=== PATIENT | female | born 1970 | race Caucasian/White ===

== ENCOUNTER 2024-11-16 07:38 | Observation (INO) ==
[2024-11-16] MEDS: ZOFRAN INJ 4 MG VIAL IVP ONE ×2 (07:52→09:38)
--- NOTE | 2024-11-16 07:52 | ED.ABDFE ---
HPI Time Seen Time Seen by Provider: 11/16/24 07:43 HPI Comment HPI Comment: History as below. Complaint Doctors Chief Complaint Comments: Patient is 53yr old female in ER with right upper quadrant abdominal pain associated with nausea that started 03:00am today. patient is post, karina cash . COVID-19 Coronavirus risk:travel/contact w/high risk person: No Has patient experienced Coronavirus symptoms: No Reviewed Nurses Notes Review: Yes PMH PMH Past Surgical History: Yes ROS Review of Systems Constitutional: No Symptoms Reported; negative Fever Eyes: No Symptoms Reported ENTM: No Symptoms Reported Respiratoy: No Symptoms Reported; negative Moist Cough or Short of Breath Cardiovascular: No Symptoms Reported; negative Chest Pain Gastrointestinal/Abdominal: Abdominal Pain (RUQ ABD PAIN.) and Nausea; negative Vomiting Genitourinary: No Symptoms Reported; negative Dysuria Neurological: No Symptoms Reported; negative Headache or Dizziness Musculoskeletal: No Symptoms Reported; negative Muscle Pain Integumentary: No Symptoms Reported; negative Rash Hematologic/Lymphatic: No Symptoms Reported Endocrine: No Symptoms Reported and Increased Thirst; negative Increased Urine Psychiatric: No Symptoms Reported All Other Systems: Reviewed and Negative Unable to Obtain Due To: Altered mental status PE Vital Signs Vitals: Vital Signs Temperature 98.0 F Pulse Rate 89 Respiratory Rate 18 Blood Pressure 123/76 O2 Sat by Pulse Oximetry 96 General Limitations: No Limitations General Appearance: Alert Head Head Exam: Normal Inspection Eyes Eye exam: Normal Appearance ENT ENT Exam: Normal Exam, Normal Oropharynx, Normal External Ear Exam and TM's N ormal Bilaterally Neck Neck Exam: Normal Inspection and Trachea Midline; negative Tenderness Chest Chest Inspection: Normal Inspection and Symmetric Chest Wall Rise; negative Tenderness Respiratory Respiratory Exam: Normal Lung Sounds Bilat; negative Accessory Muscle Use, Chest Wall Tenderness or Respiratory Distress Respiratory Exam: Bilateral: Clear to Auscultation Cardiovascular Cardiovascular Exam: Regular Rate Abdominal Exam Abdominal Exam: Normal Inspection, Normal Bowel Sounds, Soft and Tenderness Abdominal Tenderness: RUQ and Moderate Rectal Rectal Exam: Deferred Back Back Exam: Normal Inspection; negative (R) CVA Tenderness or (L) CVA Tenderness Extremeties Extremities Exam: Normal Inspection and Normal Capillary Refill External Exam: Female: Normal External Exam and Deferred : Speculum Exam (Female): Deferred : Bimanual Exam (female): Deferred Neurologic Neurological Exam: Alert and Oriented X3; negative Motor Sensory Deficit Psychiatric Psychiatric Exam: Normal Affect and Normal Mood Skin Skin Exam: Warm; negative Rash MDM Differential Diagnosis Differential Diagnosis- Considerations may include:: Bowel Obstruction, Cholcystitis, Constipation, Pancreatitis and Urinary tract infection COURSE Treatment Treatment: See orders done while in ER. Patient is given NS IL 125cc/HR, Demerol 25mg IV and Zofran 4mg IV. ROR Labs Reviewed 11/16/24 07:49 11/16/24 07:49 Laboratory: WBC 15.6 X10^3/uL (3.6-10.0) H 11/16/24 07:49 RBC 4.96 X10^6/uL (3.5-5.4) 11/16/24 07:49 Hgb 15.6 g/dL (12.0-16.0) 11/16/24 07:49 Hct 46.2 % (36.0-47.0) 11/16/24 07:49 MCV 93.1 fL (80.0-100.0) 04 07:49 MCH 31.4 pg (27.0-34.0) 11/16/24 07:49 MCHC 33.7 g/dL (33.0-35.0) 11/16/24 07:49 RDW 13.8 % (11.6-16.5) 11/16/24 07:49 Plt Count 222 X10^3/uL (150.0-450.0) 11/16/24 07:49 MPV 8.0 fL (7.4-11.0) 11/16/24 07:49 Neut % (Auto) 89.6 % (42.0-75.0) H 11/16/24 07:49 Lymph % (Auto) 4.2 % (21.0-51.0) L 11/16/24 07:49 [place] % (Auto) 5.9 % (0.0-13.0) 11/16/24 07:49 Eos % (Auto) 0.1 % (0.9-2.9) L 11/16/24 07:49 Baso % (Auto) 0.2 % (0.2-1.0) 11/16/24 07:49 Neut # (Auto) 13.9 x10^3/uL (2.2-4.8) H 11/16/24 07:49 Lymph # (Auto) 0.6 X10^3/uL (1.3-2.9) L 11/16/24 07:49 [place] # (Auto) 0.9 x10^3/uL (0.3-0.8) H 11/16/24 07:49 Eos # (Auto) 0.0 x10^3/uL (0.0-0.2) 11/16/24 07:49 Baso # (Auto) 0.0 X10^3/uL (0.0-0.1) 11/16/24 07:49 Absolute Nucleated RBC 0.0 /100WBC 11/16/24 07:49 Sodium 138 mmol/L (136-145) 11/16/24 07:49 Corrected Sodium 140 mmol/L (136-145) 11/16/24 07:49 Potassium 4.1 mmol/L (3.5-5.1) 11/16/24 07:49 Chloride 101 mmol/L (98-107) 11/16/24 07:49 Carbon Dioxide 26.4 mmol/L (21-32) 11/16/24 07:49 BUN 11 mg/dL (7-18) 11/16/24 07:49 Creatinine 0.86 mg/dL (0.55-1.02) 11/16/24 07:49 Est GFR (MDRD) Af Amer > 60 (>60) 11/16/24 07:49 Est GFR (MDRD) Non-Af > 60 (>60) 11/16/24 07:49 Glucose 164 mg/dL (65-99) H 11/16/24 07:49 Lactic Acid 1.4 mmol/L (0.4-2.0) 11/16/24 09:25 Calcium 9.5 mg/dL (8.5-10.1) 11/16/24 07:49 Corrected Calcium TNP 11/16/24 07:49 Magnesium 1.7 mg/dL (2.0-2.9) L 11/16/24 07:49 Total Bilirubin 0.70 mg/dL (0.2-1.0) 11/16/24 07:49 AST 27 Units/L (15-37) 11/16/24 07:49 ALT 40 Units/L (12-78) 11/16/24 07:49 Alkaline Phosphatase 83 Units/L (46-116) 11/16/24 07:49 Total Protein 7.7 g/dL (6.4-8.2) 11/16/24 07:49 Albumin 3.7 g/dL (3.4-5.0) 11/16/24 07:49 Globulin 4.0 g/dL (2.5-4.5) 11/16/24 07:49 Albumin/Globulin Ratio 0.9 Ratio (1.1-2.1) L 11/16/24 07:49 Amylase 14 Units/L (25-115) L 11/16/24 07:49 Lipase 26 Units/L (16-77) 11/16/24 07:49 Opioid Opioid Risk Tool Total: 0 Total Score Risk Category: Low Risk Copyright: William CHARLES predicting aberrant behaviors Discharge Plan Diagnosis Discharge Problem: Acute abdominal pain in right lower quadrant, Leucocytosis, Hx laparoscopic cholecystectomy Discharge Plan Patient Disposition: 09 ADMITTED INPATIENT Condition: Stable
[2024-11-16 08:01] LABS: BASOPHILS % (AUTO) 0.2 % (0.2-1.0); EOSINOPHILS % (AUTO) 0.1 % (0.9-2.9); HEMATOCRIT 46.2 % (36.0-47.0); HEMOGLOBIN 15.6 g/dL (12.0-16.0); LYMPHOCYTES # (AUTO) 0.6 X10^3/uL (1.3-2.9); LYMPHOCYTES % (AUTO) 4.2 % (21.0-51.0); MEAN CORPUSCULAR HEMOGLOBIN 31.4 pg (27.0-34.0); MEAN CORPUSCULAR HGB CONC 33.7 g/dL (33.0-35.0); MEAN CORPUSCULAR VOLUME 93.1 fL (80.0-100.0); MONOCYTES # (AUTO) 0.9 x10^3/uL (0.3-0.8); MONOCYTES % (AUTO) 5.9 % (0.0-13.0); NEUTROPHILS # (AUTO) 13.9 x10^3/uL (2.2-4.8); NEUTROPHILS % (AUTO) 89.6 % (42.0-75.0); PLATELET COUNT 222 X10^3/uL (150.0-450.0); RED BLOOD COUNT 4.96 X10^6/uL (3.5-5.4); RED CELL DISTRIBUTION WIDTH 13.8 % (11.6-16.5); WHITE BLOOD COUNT 15.6 X10^3/uL (3.6-10.0)
[2024-11-16] MEDS: DEMEROL INJ IVP ONE (08:04)
[2024-11-16 08:13] LABS: ALANINE AMINOTRANSFERASE 40 Units/L (12-78); ALBUMIN 3.7 g/dL (3.4-5.0); ALKALINE PHOSPHATASE 83 Units/L (46-116); AMYLASE 14 Units/L (25-115); ASPARTATE AMINO TRANSFERASE 27 Units/L (15-37); BLOOD UREA NITROGEN 11 mg/dL (7-18); CALCIUM 9.5 mg/dL (8.5-10.1); CARBON DIOXIDE 26.4 mmol/L (21-32); CHLORIDE 101 mmol/L (98-107); COR NA(FOR HYPERGLY) 140 mmol/L (136-145); CREATININE 0.86 mg/dL (0.55-1.02); GLUCOSE 164 mg/dL (65-99); LIPASE 26 Units/L (16-77); SODIUM 138 mmol/L (136-145); TOTAL PROTEIN 7.7 g/dL (6.4-8.2); eGFR NON BLACK RACES > 60 (>60)
[2024-11-16 08:14] LABS: POTASSIUM 4.1 mmol/L (3.5-5.1)
[2024-11-16] MEDS: NS 1,000 ML IV 1,000 ML IV SCH (08:20)
--- NOTE | 2024-11-16 08:27 | CT ---
EXAM:CT ABDOMEN AND PELVIS WITHOUT CONTRASTHISTORY:ABDOMINAL PAIN ;COMPARISON:None.TECHNIQUE:Axial CT images were obtained through the abdomen and pelvis without contrast. Coronal reformatted images were included.All CT scans at this facility use dose modulation, iterative reconstruction, and/or weight based dosing when appropriate to reduce radiation dose to as low as reasonably achievable.FINDINGS:Please note that without the use of intravenous contrast, evaluation of organ parenchyma is limited.LOWER THORAX: Bilateral breast implants noted. Small hiatal hernia.ABDOMEN:LIVER: NormalGALLBLADDER: Postop changes of cholecystectomy are noted. Within the gallbladder fossa, there is a collection of fluid and gas, suspicious for abscess measuring 3.4 x 3.3 cm.SPLEEN: NormalPANCREAS: NormalKIDNEYS: NormalADRENAL GLANDS: NormalGI TRACT: Colonic diverticulosis without evidence of diverticulitis.LYMPH NODES: No enlarged nodesVESSELS: Mild atherosclerosis.PERITONEUM / RETROPERITONEUM: Healing anterior abdominal wall laparoscopic port sites are noted with skin julian and underlying expected fat stranding, consistent with likely recent cholecystectomy.PELVIS:BLADDER: NormalGENITALS: NormalBONES: NormalIMPRESSION:Postop changes of recent cholecystectomy are noted. In the gallbladder fossa there is a collection of fluid and gas measuring 3.4 x 3.3 cm in the axial plane, suspicious for abscess. Correlation recommended.THIS IS AN ELECTRONICALLY VERIFIED FINAL REPORT11/16/2024 8:23 AM - Electronically signed by Hardik Galeas MD
--- NOTE | 2024-11-16 09:09 | ED.ABDFE ---
HPI Time Seen Time Seen by Provider: 11/16/24 07:43 PCP Primary Care Physician: lily chavez HPI Comment HPI Comment: According to pt she began experiencing pain in the right upper quadrant pain, sudden in onset woke up from sleep. Pain moderate to severe intensity. Worse with movement and cough .Came to ER for evaluation .She had laproscopic cholecystectomy on 11/12/2024 Complaint Doctors Chief Complaint Comments: right upper quadrant abdominal pain Chief Complaint:: Patient states on 11/12/24 she had her gallbladder out by Dr bullock she has not had any probelms up until this morning around 0300 she started having right side abd pain patient states it feels like someone got a air hose in her and blowing her up. Nothing makes the pain better or worse and she states it doesnt radiate anywhere. Patient also c/o of nausea no vomiting or diarrhea. Self Treatment fo Chief Complaint: zofran COVID-19 Coronavirus risk:travel/contact w/high risk person: No Has patient experienced Coronavirus symptoms: No Reviewed Nurses Notes Review: Yes Source History Provided: Patient Mode of arrival Mode of Arrival: Ambulatory Timing Onset of Chief Complaint: 11/16/24 Came on: Suddenly Duration Since Onset: Since Onset Duration: Hours Location Location: RUQ Severity Severity: Moderate and Severe Quality Quality: Aching Context History of: Abdominal surgery Modifying factors Worsening Factors: Position and Movement Improving Factors: Nothing Associated signs and symptoms Associated Signs and Symptoms: Nausea PMH PMH Past Medical History: Yes Past Medical History: Hypertension Past Surgical History: Yes Surgical History: and Cholecystectomy Family History History of Family Medical Conditions: Yes Family Medical History: Hypertension Social History Does patient currently use any type of tobacco product: Yes Have you used tobacco products in the last 12 months: Yes Type of Tobacco Use: Vape Does any household member use tobacco: Yes Alcohol Use: None Do you use any recreational Drugs:: No Lives With: Family Lives Where: Home Travel Risk Coronavirus risk:travel/contact w/high risk person: No Has patient experienced Coronavirus symptoms: No Infectious screening In the last 2 months have you had wt loss of >10#?: NO Have you had fever, night sweats or hemotysis?: No Have you traveled outside the country in the last 6 months?: No Isolation: Standard ROS Review of Systems Constitutional: No Symptoms Reported Eyes: No Symptoms Reported ENTM: No Symptoms Reported Respiratoy: No Symptoms Reported Cardiovascular: No Symptoms Reported Gastrointestinal/Abdominal: See HPI Genitourinary: No Symptoms Reported Neurological: No Symptoms Reported Integumentary: No Symptoms Reported PE Vital Signs Vitals: Vital Signs Temperature 98.0 F Pulse Rate 89 Respiratory Rate 18 Respiratory Rate 18 Blood Pressure 123/76 O2 Sat by Pulse Oximetry 96 General Limitations: No Limitations General Appearance: Alert and In Distress Head Head Exam: Normal Inspection, Atraumatic and Normocephalic Eyes Eye exam: Normal Appearance, PERRL and EOMI ENT ENT Exam: Normal Oropharynx and Mucous Membranes Moist Neck Neck Exam: Normal Inspection and Full ROM Chest Chest Inspection: Normal Inspection and Symmetric Chest Wall Rise Respiratory Respiratory Exam: Normal Lung Sounds Bilat Respiratory Exam: Bilateral: Clear to Auscultation Cardiovascular Cardiovascular Exam: +S1 and +S2 Abdominal Exam Abdominal Exam: Normal Inspection, Normal Bowel Sounds, Soft, Tenderness, Guarding and Incision Abdominal Tenderness: RUQ Back Back Exam: Normal Inspection Extremeties Extremities Exam: Normal Inspection Neurologic Neurological Exam: Alert MDM Additional Information Obtained From Additional information provided by: Old Records Differential Diagnosis Other differential diagnosis: acute abdominal pain right upper quadrant ,air bubble,nausea COURSE Treatment Treatment: labs ,ct abdomen and pelvis ,zofran ROR Labs Reviewed Laboratory Results Reviewed?: Yes 11/16/24 07:49 11/16/24 07:49 Laboratory: WBC 15.6 X10^3/uL (3.6-10.0) H 11/16/24 07:49 RBC 4.96 X10^6/uL (3.5-5.4) 11/16/24 07:49 Hgb 15.6 g/dL (12.0-16.0) 11/16/24 07:49 Hct 46.2 % (36.0-47.0) 11/16/24 07:49 MCV 93.1 fL (80.0-100.0) 11/16/24 07:49 MCH 31.4 pg (27.0-34.0) 11/16/24 07:49 MCHC 33.7 g/dL (33.0-35.0) 11/16/24 07:49 RDW 13.8 % (11.6-16.5) 11/16/24 07:49 Plt Count 222 X10^3/uL (150.0-450.0) 11/16/24 07:49 MPV 8.0 fL (7.4-11.0) 11/16/24 07:49 Neut % (Auto) 89.6 % (42.0-75.0) H 11/16/24 07:49 Lymph % (Auto) 4.2 % (21.0-51.0) L 11/16/24 07:49 [place] % (Auto) 5.9 % (0.0-13.0) 11/16/24 07:49 Eos % (Auto) 0.1 % (0.9-2.9) L 11/16/24 07:49 Baso % (Auto) 0.2 % (0.2-1.0) 11/16/24 07:49 Neut # (Auto) 13.9 x10^3/uL (2.2-4.8) H 11/16/24 07:49 Lymph # (Auto) 0.6 X10^3/uL (1.3-2.9) L 11/16/24 07:49 [place] # (Auto) 0.9 x10^3/uL (0.3-0.8) H 11/16/24 07:49 Eos # (Auto) 0.0 x10^3/uL (0.0-0.2) 11/16/24 07:49 Baso # (Auto) 0.0 X10^3/uL (0.0-0.1) 11/16/24 07:49 Absolute Nucleated RBC 0.0 /100WBC 11/16/24 07:49 Sodium 138 mmol/L (136-145) 11/16/24 07:49 Corrected Sodium 140 mmol/L (136-145) 11/16/24 07:49 Potassium 4.1 mmol/L (3.5-5.1) 11/16/24 07:49 Chloride 101 mmol/L (98-107) 11/16/24 07:49 Carbon Dioxide 26.4 mmol/L (21-32) 11/16/24 07:49 BUN 11 mg/dL (7-18) 11/16/24 07:49 Creatinine 0.86 mg/dL (0.55-1.02) 11/16/24 07:49 Est GFR (MDRD) Af Amer > 60 (>60) 11/16/24 07:49 Est GFR (MDRD) Non-Af > 60 (>60) 11/16/24 07:49 Glucose 164 mg/dL (65-99) H 11/16/24 07:49 Calcium 9.5 mg/dL (8.5-10.1) 11/16/24 07:49 Corrected Calcium TNP 11/16/24 07:49 Total Bilirubin 0.70 mg/dL (0.2-1.0) 11/16/24 07:49 AST 27 Units/L (15-37) 11/16/24 07:49 ALT 40 Units/L (12-78) 11/16/24 07:49 Alkaline Phosphatase 83 Units/L (46-116) 11/16/24 07:49 Total Protein 7.7 g/dL (6.4-8.2) 11/16/24 07:49 Albumin 3.7 g/dL (3.4-5.0) 11/16/24 07:49 Globulin 4.0 g/dL (2.5-4.5) 11/16/24 07:49 Albumin/Globulin Ratio 0.9 Ratio (1.1-2.1) L 11/16/24 07:49 Amylase 14 Units/L (25-115) L 11/16/24 07:49 Lipase 26 Units/L (16-77) 11/16/24 07:49 Opioid Opioid Risk Tool Age (Nabeel box if 16-45): No History of Preadolescent Sexual Abuse: No Total: 0 Total Score Risk Category: Low Risk Copyright: William CHARLES predicting aberrant behaviors Discharge Plan Diagnosis Discharge Problem: Acute abdominal pain in right lower quadrant, Leucocytosis, Hx laparoscopic cholecystectomy Discharge Plan Patient Disposition: 01 HOME, SELF-CARE Condition: Stable Prescriptions: No Action pantoprazole 40 mg tablet,delayed release (DR/EC) 40 mg PO BID meloxicam 15 mg tablet 15 mg PO QDAY thyroid (pork) [[place] Thyroid] 30 mg tablet 30 mg PO QDAY progesterone micronized 200 mg capsule 200 mg PO QDAY estradiol 2 mg tablet 2 mg PO DAILY cyanocobalamin (vitamin B-12) 1,000 mcg/mL solution 1,000 mcg IM Q2W eszopiclone 3 mg tablet 3 mg PO QPM Health Concerns: Post Hospitalization: new medications and changes needed to prevent readmission or further decline. Pt educated and given instructions on all concerns. Plan of Treatment: Continue with present treatment and follow up plan. Pt is to keep follow up appointment as instructed and take medications as ordered. Orders to Discharge Patient Discharge Orders: Discharge (Routine); Ordered 11/16/24 Ordered By: Kole Delacruz Transfer (Routine); Ordered 11/16/24 Ordered By: Kole Delacruz Follow ups/Referrals Follow ups/Referrals: LILY CHAVEZ [Primary Care Provider] - 3 days Instructions Stand Alone Forms: Find Help Web Site, Post Hospital Follow Up Care ADDITIONAL NOTES Additional Notes Additional Notes: spoek with Dr Mes[place] surgery .CT abdomen discussed .? air bubble v collection of fluid and gas in the gallbladder fossa ,elevated wbc .agreed to have patient admitted for IV antibiotics ,pain medication and IV fluids
[2024-11-16] MEDS: DILAUDID INJ IVP ONE (09:38)
[2024-11-16] MEDS: NS 1,000 ML IV 1,000 ML ONE (11:20)
[2024-11-16 12:25] VITALS: BMI 31.1
[2024-11-16] MEDS ORDERED: NS 250 ML IV 25 ML IV PRN (14:19)
[2024-11-16] MEDS: PATIENT'S HOME MEDICATION (Thyroid (Pork) [Armour Thyroid] 30 mg tablet) PO SCH (14:44)
[2024-11-16] MEDS: PROGESTERONE MICRONIZED 200 MG PO SCH (14:44)
[2024-11-16] MEDS ORDERED: AMBIEN PO PRN (14:46)
[2024-11-16] MEDS: DILAUDID INJ IVP PRN (14:55)
[2024-11-16] MEDS: ZOFRAN INJ 4 MG VIAL IVP PRN ×2 (14:55→19:08)
[2024-11-16] MEDS: ZOSYN VIAL 3.375 GRAMS 3.375 G in NS 100 ML IV 100 ML IV SCH (14:55)
[2024-11-16] MEDS: AMBIEN PO SCH (22:00)
[2024-11-17 06:00] LABS: BASOPHILS # (AUTO) 0.1 X10^3/uL (0.0-0.1); BASOPHILS % (AUTO) 0.2 % (0.2-1.0); HEMATOCRIT 43.2 % (36.0-47.0); HEMOGLOBIN 14.3 g/dL (12.0-16.0); LYMPHOCYTES # (AUTO) 0.4 X10^3/uL (1.3-2.9); LYMPHOCYTES % (AUTO) 1.7 % (21.0-51.0); MEAN CORPUSCULAR HEMOGLOBIN 31.5 pg (27.0-34.0); MEAN CORPUSCULAR HGB CONC 33.2 g/dL (33.0-35.0); MEAN CORPUSCULAR VOLUME 94.9 fL (80.0-100.0); MEAN PLATELET VOLUME 8.2 fL (7.4-11.0); MONOCYTES # (AUTO) 1.4 x10^3/uL (0.3-0.8); MONOCYTES % (AUTO) 5.9 % (0.0-13.0); NEUTROPHILS # (AUTO) 21.2 x10^3/uL (2.2-4.8); NEUTROPHILS % (AUTO) 92.2 % (42.0-75.0); PLATELET COUNT 210 X10^3/uL (150.0-450.0); RED BLOOD COUNT 4.55 X10^6/uL (3.5-5.4); RED CELL DISTRIBUTION WIDTH 13.6 % (11.6-16.5)
[2024-11-17 06:17] LABS: ALANINE AMINOTRANSFERASE 50 Units/L (12-78); ALBUMIN 3.3 g/dL (3.4-5.0); ALKALINE PHOSPHATASE 85 Units/L (46-116); ASPARTATE AMINO TRANSFERASE 27 Units/L (15-37); BLOOD UREA NITROGEN 15 mg/dL (7-18); CALCIUM 9.1 mg/dL (8.5-10.1); CARBON DIOXIDE 27.7 mmol/L (21-32); CHLORIDE 102 mmol/L (98-107); COR CA(FOR HYPOALB) 9.7 mg/dL (8.5-10.1); COR NA(FOR HYPERGLY) 140 mmol/L (136-145); CREATININE 0.86 mg/dL (0.55-1.02); GLUCOSE 146 mg/dL (65-99); POTASSIUM 3.9 mmol/L (3.5-5.1); SODIUM 139 mmol/L (136-145); TOTAL PROTEIN 7.9 g/dL (6.4-8.2); eGFR NON BLACK RACES > 60 (>60)
[2024-11-17 06:26] LABS: PLATELET MORPHOLOGY COMMENT NORMAL (NORMAL)
[2024-11-17] MEDS: ESTRACE PO SCH (08:04)
[2024-11-17] MEDS ORDERED: ESTRADIOL 2 MG PO SCH (09:00)
--- NOTE | 2024-11-17 09:14 | DR.PROGNOT ---
HOSPITAL PROGRESS NOTE Progress Note for Day of: Progress Note Date: 11/17/24 Chief Complaint Chief Complaint: still c/o RUQ and RT side pain ,[place] [address] with [place] shift . normal LFT , normal BUN/Creat .. Pt is afebrile. RUQ tenderness , BS hypoactive .. Past Medical Family Social History Allergies: Allergies alcohol Allergy (Verified 11/16/24 07:51) ethyl alcohol Allergy (Verified 11/16/24 07:51) Sulfa (Sulfonamide Antibiotics) [SULFA] Allergy (Verified 11/16/24 07:51) Vital Signs Vital Signs: Vital Signs Temperature 97.7 F Temperature 97.9 F Pulse Rate [Right Brachial] 81 Pulse Rate [Right Brachial] 86 Respiratory Rate 20 Respiratory Rate 20 Respiratory Rate 16 Respiratory Rate 16 Respiratory Rate 17 Blood Pressure [Right Arm] 131/76 Blood Pressure [Right Arm] 114/75 O2 Sat by Pulse Oximetry 95 O2 Sat by Pulse Oximetry 97 Physical Exam Oriented: Normal Eyes: Normal Ear: Normal Nose: Normal Throat: Normal Respiratory: Normal GI:Auscultation: Decreased GI: Tenderness: RUQ Speech Pattern: Clear Laboratory and Diagnostics 11/17/24 05:30 11/17/24 05:30 Labs: Laboratory WBC 23.0 X10^3/uL (3.6-10.0) H 11/17/24 05:30 RBC 4.55 X10^6/uL (3.5-5.4) 11/17/24 05:30 Hgb 14.3 g/dL (12.0-16.0) 11/17/24 05:30 Hct 43.2 % (36.0-47.0) 11/17/24 05:30 MCV 94.9 fL (80.0-100.0) 11/17/24 05:30 MCH 31.5 pg (27.0-34.0) 11/17/24 05:30 MCHC 33.2 g/dL (33.0-35.0) 11/17/24 05:30 RDW 13.6 % (11.6-16.5) 11/17/24 05:30 Plt Count 210 X10^3/uL (150.0-450.0) 11/17/24 05:30 Plt Count Comment Adequate (ADEQUATE) 11/17/24 05:30 MPV 8.2 fL (7.4-11.0) 11/17/24 05:30 Neut % (Auto) 92.2 % (42.0-75.0) H 11/17/24 05:30 Lymph % (Auto) 1.7 % (21.0-51.0) L 11/17/24 05:30 [place] % (Auto) 5.9 % (0.0-13.0) 11/17/24 05:30 Eos % (Auto) 0.0 % (0.9-2.9) L 11/17/24 05:30 Baso % (Auto) 0.2 % (0.2-1.0) 11/17/24 05:30 Neut # (Auto) 21.2 x10^3/uL (2.2-4.8) H 11/17/24 05:30 Lymph # (Auto) 0.4 X10^3/uL (1.3-2.9) L 11/17/24 05:30 [place] # (Auto) 1.4 x10^3/uL (0.3-0.8) H 11/17/24 05:30 Eos # (Auto) 0.0 x10^3/uL (0.0-0.2) 11/17/24 05:30 Baso # (Auto) 0.1 X10^3/uL (0.0-0.1) 11/17/24 05:30 Absolute Nucleated RBC 0.0 /100WBC 11/17/24 05:30 Total Counted 100 11/17/24 05:30 Neutrophils % (Manual) 86 % (39-76) H 11/17/24 05:30 Lymphocytes % (Manual) 10 % (13-43) L 11/17/24 05:30 Monocytes % (Manual) 4 % (4-9) 11/17/24 05:30 Plt Morphology Comment Normal (NORMAL) 11/17/24 05:30 RBC Morphology Normal (NORMAL) 11/17/24 05:30 Sodium 139 mmol/L (136-145) 11/17/24 05:30 Corrected Sodium 140 mmol/L (136-145) 11/17/24 05:30 Potassium 3.9 mmol/L (3.5-5.1) 11/17/24 05:30 Chloride 102 mmol/L (98-107) 11/17/24 05:30 Carbon Dioxide 27.7 mmol/L (21-32) 11/17/24 05:30 BUN 15 mg/dL (7-18) 11/17/24 05:30 Creatinine 0.86 mg/dL (0.55-1.02) 11/17/24 05:30 Est GFR (MDRD) Af Amer > 60 (>60) 11/17/24 05:30 Est GFR (MDRD) Non-Af > 60 (>60) 11/17/24 05:30 Glucose 146 mg/dL (65-99) H 11/17/24 05:30 Lactic Acid 1.4 mmol/L (0.4-2.0) 11/16/24 09:25 Calcium 9.1 mg/dL (8.5-10.1) 11/17/24 05:30 Corrected Calcium 9.7 mg/dL (8.5-10.1) 11/17/24 05:30 Magnesium 2.0 mg/dL (2.0-2.9) 11/17/24 05:30 Total Bilirubin 1.00 mg/dL (0.2-1.0) 11/17/24 05:30 AST 27 Units/L (15-37) 11/17/24 05:30 ALT 50 Units/L (12-78) 11/17/24 05:30 Alkaline Phosphatase 85 Units/L (46-116) 11/17/24 05:30 Total Protein 7.9 g/dL (6.4-8.2) 11/17/24 05:30 Albumin 3.3 g/dL (3.4-5.0) L 11/17/24 05:30 Globulin 4.6 g/dL (2.5-4.5) H 11/17/24 05:30 Albumin/Globulin Ratio 0.7 Ratio (1.1-2.1) L 11/17/24 05:30 Amylase 14 Units/L (25-115) L 11/16/24 07:49 Lipase 26 Units/L (16-77) 11/16/24 07:49 Assessment and Plan 1: s/p lap aysha , possible sub hepatic abscess . on IV ABT . for biliary scan in am .. Problem Patient Problems: Patient Problems Acute abdominal pain in right lower quadrant (Acute) R10.31 Leucocytosis (Acute) D72.829 Hx laparoscopic cholecystectomy (Acute) Z90.49
[2024-11-17] MEDS: VANCOMYCIN IV *PREMIX 1 G/200 ML BAG 1 G/200 ML PIGGYBACK IV SCH (09:15)
[2024-11-17] MEDS: BENADRYL INJ 50 MG VIAL IVP PRN (11:40)
[2024-11-17] MEDS: BENADRYL INJ 50 MG VIAL ONE (11:45)
[2024-11-17] MEDS ORDERED: NORCO 5/325 MG TAB PO PRN (17:09)
[2024-11-17] MEDS: MYLICON TAB 80 MG CHEW PO PRN (17:22)
[2024-11-17] MEDS: TORADOL 30 MG VIAL IVP PRN (17:23)
[2024-11-17] MEDS: TYLENOL 325 MG TAB PO PRN (21:46)
--- NOTE | 2024-11-18 00:34 | EKG ---
Test Reason : hypertension protocol Blood Pressure : */* mmHG Vent. Rate : 89 BPM Atrial Rate : 89 BPM P-R Int : 152 ms QRS Dur : 74 ms QT Int : 364 ms P-R-T Axes : 60 24 100 degrees QTc Int : 442 ms Normal sinus rhythm Possible Left atrial enlargement Abnormal QRS-T angle, consider primary T wave abnormality Abnormal ECG When compared with ECG of 12-NOV-2024 06:41, Vent. rate has increased BY 30 BPM T wave amplitude has decreased in Inferior leads T wave inversion less evident in Anterolateral leads QT has shortened Confirmed by Sam Rivas MD ([id number]) on 11/18/2024 7:10:10 AM Referred By: Confirmed By: Sam Rivas MD
[2024-11-18] MEDS: CATAPRES TAB 0.1 MG PO ONE (00:59)
[2024-11-18] MEDS: PROTONIX INJ 40 MG VIAL IVP SCH ×2 (01:47→09:02)
[2024-11-18] MEDS: PROTONIX INJ 40 MG VIAL ONE (04:04)
[2024-11-18 06:08] LABS: BASOPHILS % (AUTO) 0.2 % (0.2-1.0); HEMATOCRIT 37.3 % (36.0-47.0); HEMOGLOBIN 12.5 g/dL (12.0-16.0); LYMPHOCYTES # (AUTO) 0.7 X10^3/uL (1.3-2.9); LYMPHOCYTES % (AUTO) 5.5 % (21.0-51.0); MEAN CORPUSCULAR HEMOGLOBIN 31.3 pg (27.0-34.0); MEAN CORPUSCULAR HGB CONC 33.4 g/dL (33.0-35.0); MEAN CORPUSCULAR VOLUME 93.7 fL (80.0-100.0); MEAN PLATELET VOLUME 8.4 fL (7.4-11.0); MONOCYTES # (AUTO) 0.8 x10^3/uL (0.3-0.8); MONOCYTES % (AUTO) 6.3 % (0.0-13.0); NEUTROPHILS # (AUTO) 11.9 x10^3/uL (2.2-4.8); PLATELET COUNT 162 X10^3/uL (150.0-450.0); RED BLOOD COUNT 3.98 X10^6/uL (3.5-5.4); RED CELL DISTRIBUTION WIDTH 13.9 % (11.6-16.5); WHITE BLOOD COUNT 13.5 X10^3/uL (3.6-10.0)
[2024-11-18 06:34] LABS: ALANINE AMINOTRANSFERASE 34 Units/L (12-78); ALBUMIN 2.3 g/dL (3.4-5.0); ALKALINE PHOSPHATASE 87 Units/L (46-116); ASPARTATE AMINO TRANSFERASE 22 Units/L (15-37); BLOOD UREA NITROGEN 8 mg/dL (7-18); CALCIUM 8.8 mg/dL (8.5-10.1); CARBON DIOXIDE 25.1 mmol/L (21-32); CHLORIDE 105 mmol/L (98-107); COR CA(FOR HYPOALB) 10.2 mg/dL (8.5-10.1); COR NA(FOR HYPERGLY) 139 mmol/L (136-145); CREATININE 0.77 mg/dL (0.55-1.02); GLUCOSE 111 mg/dL (65-99); POTASSIUM 3.4 mmol/L (3.5-5.1); SODIUM 139 mmol/L (136-145); TOTAL PROTEIN 6.3 g/dL (6.4-8.2); eGFR NON BLACK RACES > 60 (>60)
[2024-11-18] MEDS ORDERED: CONSULT PHARMACY - POTASSIUM & MAGNESIUM XX SCH (08:00)
[2024-11-18 09:54] VITALS: RESP 21
[2024-11-18] MEDS: PHARMACY COMMENT IV ONE (09:57)
[2024-11-18 12:15] VITALS: BP 163/80; PULSE 92; TEMP 97.8; O2SAT 96
[2024-11-18] MEDS ORDERED: PHARMACY COMMENT IV ONE (13:30)
[2024-11-18 14:32] LABS: CREATININE 0.74 mg/dL (0.55-1.02); VANCOMYCIN,TROUGH 9.1 ug/mL (15-20)
--- NOTE | 2024-11-18 16:57 | NM ---
EXAM:HIDA/HEPATOBILIARY SCAN W/O EFHISTORY:RUQ pain, S/P lap aysha; 6.5mCI 99mTc Mebrofenin. Evaluate for bile leak.COMPARISON:CT abdomen and pelvis 11/16/2024TECHNIQUE:6.5 mCi Tc-99m mebrofenin were injected intravenously. Planar images were obtained.FINDINGS:There was prompt uptake and excretion by the liver. Activity is seen in the small bowel at 7 minutes with no evidence of common bile duct obstruction. No gallbladder identified consistent with cholecystectomy.The exam was followed for 60 minutes until nearly all of the activity was excreted from the liver. Is no abnormal accumulation of activity to suggest a bile leak. No abnormal accumulation of activity in the gallbladder fossa.IMPRESSION:1. No evidence for bile leakTHIS IS AN ELECTRONICALLY VERIFIED FINAL REPORT11/18/2024 4:47 PM - Electronically signed by Oleg Lundberg MD
[2024-11-18] MEDS ORDERED: KLOR-CON PO SCH (21:00)
== END 2024-11-18 15:20 | disposition home or self-care (01) ==
LOC: MED/SURG 07:38 → ER 07:38 → MED/SURG 10:55
PROVIDERS: ADMIT Surgery; ATTEND Surgery
DX: Z98.890 Other specified postprocedural states; R51.9 Headache, unspecified; D72.828 Other elevated white blood cell count; R94.31 Abnormal electrocardiogram [ECG] [EKG]; Z90.49 Acquired absence of other specified parts of digestive tract; Z72.0 Tobacco use; R73.09 Other abnormal glucose; I10 Essential (primary) hypertension; R41.82 Altered mental status, unspecified; K21.9 Gastro-esophageal reflux disease without esophagitis; E83.42 Hypomagnesemia; R10.11 Right upper quadrant pain; R10.31 Right lower quadrant pain